=== PATIENT | female | born 1940 | race Two or more races ===

== ENCOUNTER 2024-04-24 07:48 | Inpatient (IN) | payer MEDICARE, OTHER ==
[~2024-04-24] VITALS: Ht 160 cm; Wt 60.3 kg
[2024-04-24 08:23] LABS: BASOPHILS # (AUTO) 0.1 K/uL (0.0-0.2); BASOPHILS % (AUTO) 0.6 % (0.0-2.0); EOSINOPHILS # (AUTO) 0.2 K/uL (0.0-0.7); EOSINOPHILS % (AUTO) 2.5 % (0.0-6.0); HEMATOCRIT 41 % (33-45); HEMOGLOBIN 13.8 g/dL (11.5-14.8); LYMPHOCYTES # (AUTO) 3.8 K/uL (0.8-4.8); MEAN CORPUSCULAR HEMOGLOBIN 30 PG (26.0-33.0); MEAN CORPUSCULAR HGB CONC 34 g/dl (31.0-36.0); MEAN CORPUSCULAR VOLUME 89 fL (82-100); MONOCYTES # (AUTO) 0.5 K/uL (0.1-1.30); MONOCYTES % (AUTO) 5.7 % (2.0-12.0); NEUTROPHILS # (AUTO) 4.5 K/uL (1.8-8.9); NEUTROPHILS % (AUTO) 49.2 % (43.0-81.0); PLATELET COUNT (AUTO) 160 K/uL (150-450); RED BLOOD CELL COUNT(AUTO) 4.66 MIL/uL (4.0-5.2); RED CELL DISTRIBUTION WIDTH 13.1 % (11.5-15.0); WHITE BLOOD COUNT (AUTO) 9.1 K/uL (4.3-11.0)
[2024-04-24 08:40] LABS: CALCIUM, SERUM 9.5 mg/dL (8.5-10.1); CARBON DIOXIDE 27 mmol/L (21-32); CHLORIDE 104 mmol/L (98-107); CREATININE 0.7 mg/dL (0.6-1.3); GLUCOSE 117 mg/dL (74-106); POTASSIUM 3.7 mmol/L (3.5-5.1); SODIUM SERUM 141 mmol/L (136-145); UREA NITROGEN, BLOOD 16 mg/dL (7-18)
[2024-04-24 08:40] LABS: APPEARANCE,URINE CLEAR (CLEAR); BILIRUBIN,URINE NEGATIVE (NEGATIVE); BLOOD, URINE NEGATIVE Ery/uL (NEGATIVE); COLOR,URINE YELLOW (YELLOW); KETONES,URINE NEGATIVE (NEGATIVE); LEUKOCYTE ESTERASE ,URINE TRACE (NEGATIVE); NITRITE, URINE NEGATIVE (NEGATIVE); PH,URINE 7.5 (5.0-8.0); PROTEIN,URINE NEGATIVE (NEGATIVE); UGLUCOSE NEGATIVE (NEGATIVE); UROBILINOGEN,URINE 0.2 EU/dL (0.2)
[2024-04-24 08:45] LABS: ALANINE AMINOTRANSFERASE 18 U/L (12-78); ALBUMIN 3.3 g/dL (3.4-5.0); ALKALINE PHOSPHATASE 86 U/L (46-116); ASPARTATE AMINOTRANSFERASE 22 U/L (15-37); BILIRUBIN,DIRECT 0.2 mg/dL (0.0-0.2); BILIRUBIN,TOTAL 0.7 mg/dL (0.2-1.0); TOTAL PROTEIN, SERUM 7.2 g/dL (6.4-8.2)
[2024-04-24 08:50] LABS: THYROID STIMULATING HORMONE 3.28 uIU/mL (0.358-3.74)
[2024-04-24 08:56] LABS: ADD URINE CULTURE NO; BACTERIA,URINE Rare /HPF (None Seen); RBC,URINE 0-2 /HPF (0-2)
[2024-04-24 08:57] LABS: FINE GRANULAR CASTS,URINE Few /LPF (None Seen); TRICHOMONAS,URINE None Seen /HPF (None Seen); YEAST,URINE None Seen /HPF (None Seen)
[2024-04-24] MEDS: IV NS 0.9% 500 ML IV ONE (11:07)
[2024-04-24] MEDS ORDERED: METO25TA3 PO (11:33)
[2024-04-24] MEDS ORDERED: ATOR10TA PO (11:33)
[2024-04-24] MEDS ORDERED: CEFTRIAXONE 1GM BAG (ER ONLY) 50 ML IV ONE (11:37)
[2024-04-24] MEDS: CEFTRIAXONE 1 G in IV D5W 50 ML IV ONE (11:43)
[2024-04-24] MEDS ORDERED: Z GUARD REMEDY 4 OZ OINT TP PRN (13:00)
[2024-04-24] MEDS ORDERED: ACETAMINOPHEN 325 MG TABLET PO PRN (13:00)
[2024-04-24] MEDS ORDERED: ONDANSETRON HCL/PF 4 MG/2 ML VIAL IVP PRN (13:00)
[2024-04-24] MEDS ORDERED: MAG HYDROX/AL HYDROX/SIMETH 30 ML UDC PO PRN (13:00)
[2024-04-24 16:00] VITALS: BP 140/66; TEMP 97.9; O2SAT 98
[2024-04-24] MEDS: IV NS 0.9% 1,000 ML IV PRN (18:12)
[2024-04-24 20:12] VITALS: BP 110/62; TEMP 98.2; O2SAT 98
[2024-04-25] VITALS (8 sets, daily range): BP systolic 122–147; BP diastolic 72–116; TEMP 97.3–98.2; O2SAT 95–99
[2024-04-25 07:03] LABS: BASOPHILS % (AUTO) 0.4 % (0.0-2.0); EOSINOPHILS # (AUTO) 0.2 K/uL (0.0-0.7); EOSINOPHILS % (AUTO) 2.4 % (0.0-6.0); HEMATOCRIT 39 % (33-45); HEMOGLOBIN 13.2 g/dL (11.5-14.8); LYMPHOCYTES # (AUTO) 2.8 K/uL (0.8-4.8); LYMPHOCYTES % (AUTO) 38.4 % (20.0-44.0); MEAN CORPUSCULAR HEMOGLOBIN 31 PG (26.0-33.0); MEAN CORPUSCULAR HGB CONC 34 g/dl (31.0-36.0); MEAN CORPUSCULAR VOLUME 89 fL (82-100); MONOCYTES # (AUTO) 0.5 K/uL (0.1-1.30); MONOCYTES % (AUTO) 7.4 % (2.0-12.0); NEUTROPHILS # (AUTO) 3.8 K/uL (1.8-8.9); NEUTROPHILS % (AUTO) 51.4 % (43.0-81.0); PLATELET COUNT (AUTO) 137 K/uL (150-450); RED BLOOD CELL COUNT(AUTO) 4.31 MIL/uL (4.0-5.2); RED CELL DISTRIBUTION WIDTH 13.1 % (11.5-15.0); WHITE BLOOD COUNT (AUTO) 7.4 K/uL (4.3-11.0)
[2024-04-25 07:37] LABS: CALCIUM, SERUM 8.9 mg/dL (8.5-10.1); CARBON DIOXIDE 24 mmol/L (21-32); CHLORIDE 109 mmol/L (98-107); CREATININE 0.5 mg/dL (0.6-1.3); GLUCOSE 97 mg/dL (74-106); MAGNESIUM 2.3 mg/dL (1.8-2.4); PHOSPHORUS 2.8 mg/dL (2.5-4.9); POTASSIUM 3.6 mmol/L (3.5-5.1); SODIUM SERUM 141 mmol/L (136-145); UREA NITROGEN, BLOOD 15 mg/dL (7-18)
[2024-04-25] MEDS ORDERED: IV NS 0.9% 500 ML IV ONE (16:00)
[2024-04-26 00:08] VITALS: BP 133/73; TEMP 97.9; O2SAT 96
[2024-04-26 04:09] VITALS: BP 136/81; TEMP 97.5; O2SAT 99
[2024-04-26 07:30] VITALS: BP 155/78; TEMP 97.6; O2SAT 99
[2024-04-26] MEDS: MECLIZINE HCL 12.5 MG TABLET PO PRN (11:41)
[2024-04-26 12:20] LABS: CHOLESTEROL 177 mg/dL (<200); HDL CHOLESTEROL 73 mg/dL (40-60); LDL 90 mg/dL (0-99); TRIGLYCERIDES 55 mg/dL (30-150)
[2024-04-26 16:36] VITALS: BP 131/82; TEMP 98; O2SAT 98
[2024-04-26 16:37] VITALS: BP_SYST 122; BP_SYST 130; BP_SYST 131; BP_DIAS 78; BP_DIAS 81; BP_DIAS 82; TEMP 98; O2SAT 98
[2024-04-26 20:56] VITALS: BP 135/76; TEMP 97.9; O2SAT 97
[2024-04-27] VITALS (8 sets, daily range): BP systolic 123–147; BP diastolic 68–81; TEMP 97.3–97.8; O2SAT 96–98
[2024-04-27 10:08] LABS: FOLIC ACID > 20.0 ng/mL (>3.0)
[2024-04-27] MEDS ORDERED: IV NS 0.9% 250 ML IV ONE (11:38)
[2024-04-27] MEDS ORDERED: IOHEXOL-350 100 ML VIAL IV ONE (11:38)
[2024-04-27] MEDS: MAGNESIUM HYDROXIDE 30 ML UDC PO PRN (22:00)
[2024-04-28] VITALS (7 sets, daily range): BP systolic 118–135; BP diastolic 68–104; TEMP 97–97.7; O2SAT 96–98
[2024-04-28] MEDS ORDERED: MECL-182 PO (10:47)
[2024-04-29 13:09] LABS: METHYLMALONIC ACID 195 nmol/L (0-378)
== END 2024-04-28 14:13 | disposition home or self-care (01) | DRG 640 ==
LOC: ER 07:48 → TELE 13:34
PROVIDERS: ADMIT Internal Medicine; ATTEND Nurse Practitioner Acute Care
DX: E86.0 Dehydration (principal); E43 Unspecified severe protein-calorie malnutrition; H81.10 Benign paroxysmal vertigo, unspecified ear; E88.09 Other disorders of plasma-protein metabolism, not elsewhere classified; E78.5 Hyperlipidemia, unspecified; I10 Essential (primary) hypertension; R53.1 Weakness; Z68.23 Body mass index [BMI] 23.0-23.9, adult
CPT/HCPCS: 36415; 70450-TC; 70496-TC; 70498-TC; 71045-TC; 80048-TC; 80061-TC; 80076-TC; 81001; 82607-TC; 82962-TC; 83735-TC; 83880; 83921; 84100-TC; 84443-TC; 84484-TC; 85025-TC; 97110-TC; 97112-TC; 97116-TC; 97530-TC; A4223; G0378; J0696; J7030; J7040; J7050; J7060; J8597; Q9967

== ENCOUNTER 2025-05-13 15:08 | Emergency (ER) | payer MEDICARE, OTHER ==
[~2025-05-13] VITALS: Ht 162.6 cm; Wt 56.7 kg
[~2025-05-13 15:08] MED LIST: ATOR10TA PO; MECL-182 PO; METO25TA3 PO
[2025-05-13] MEDS ORDERED: oxyCODONE/APAP (5/325 MG) 1 UDTAB TABLET ONE (15:56)
[2025-05-13] MEDS: oxyCODONE/APAP (5/325 MG) 1 UDTAB TABLET PO ONE (16:06)
[2025-05-13] MEDS ORDERED: IBUPROFEN 400 MG TABLET ONE (18:43)
[2025-05-13 18:56] VITALS: BP 139/89; TEMP 98.6; O2SAT 98
[2025-05-13] MEDS: IBUPROFEN 400 MG TABLET PO ONE (18:56)
== END 2025-05-13 18:56 | disposition home or self-care (01) ==
LOC: ER 15:11
DX: S52.572A Other intraarticular fracture of lower end of left radius, initial encounter for closed fracture (principal); I10 Essential (primary) hypertension; Z79.899 Other long term (current) drug therapy; W18.39XA Other fall on same level, initial encounter; Y93.89 Activity, other specified; Y92.89 Other specified places as the place of occurrence of the external cause; Y99.8 Other external cause status
CPT/HCPCS: 25600; 73110; 73120-TC; 73130-TC